=== PATIENT | male | born 1990 | race Two or more races ===

== ENCOUNTER 2021-11-04 14:23 | Emergency (ER) | payer OTHER ==
[2021-11-04] MEDS ORDERED: LORazepam 2 MG/ML INJ IV STA ×2 (14:30→16:06)
[2021-11-04] MEDS ORDERED: SODIUM CHLORIDE 0.9% 1,000 ML IV ONE ×2 (14:31→16:06)
[2021-11-04 14:33] VITALS: TEMP 98
--- NOTE | 2021-11-04 14:33 | ED ---
General Adult HPI - General Stated complaint: mahinure Time Seen by Provider: 11/04/21 14:23 Source: patient, RN notes reviewed, old records reviewed - History of Present Illness Initial comments: This is a 31-year-old male who presents emergency Department states he has a drinking problem. Patient states he was told to take Keppra to prevent him having withdrawal seizures and Librium but he never picked up a prescription for Librium. Rations states he did do a little drinking today but he felt the shakes, nausea went into his roommates room and he was shaking all over he states he went back out he remembers the whole event he never was unconscious but he thinks that might of been a seizure he is not sure. Patient states he takes his Keppra every day twice a day. Patient denies any recent fever chills or cough per patient denies abdominal pain patient denies nausea vomiting diarrhea. Patient denies headache patient denies any numbness weakness. Patient is anxious and admits to being anxious. - Related Data Home Medications Medication Instructions Recorded Confirmed levETIRAcetam [Keppra] 750 mg PO BID 11/04/21 11/04/21 Allergies Allergy/AdvReac Type Severity Reaction Status Date / Time No Known Allergies Allergy Verified 11/04/21 16:33 Review of Systems ROS Statement: Those systems with pertinent positive or pertinent negative responses have been documented in the HPI. ROS Other: All systems not noted in ROS Statement are negative. General Exam - General Exam Comments Initial Comments: GENERAL: Patient is well-developed and well-nourished. Patient is nontoxic and well- hydrated and is in no acute distress. ENT: Neck is soft and supple. No significant lymphadenopathy is noted. Oropharynx is clear. Moist mucous membranes. Neck has full range of motion without eliciting any pain. EYES: The sclera were anicteric and conjunctiva were pink and moist. Extraocular movements were intact and pupils were equal round and reactive to light. Eyelids were unremarkable. PULMONARY: Unlabored respirations. Good breath sounds bilaterally. No audible rales rhonchi or wheezing was noted. CARDIOVASCULAR: Patient is tachycardic at about 120 beats a minute. ABDOMEN: Soft and nontender with normal bowel sounds. SKIN: Skin is clear with no lesions or rashes and otherwise unremarkable. NEUROLOGIC: Patient is alert and oriented x3. Cranial nerves II through XII are grossly intact. Motor and sensory are also intact. Normal speech, volume and content. Symmetrical smile. MUSCULOSKELETAL: Normal extremities with adequate strength and full range of motion. No lower extremity swelling or edema. No calf tenderness. LYMPHATICS: No significant lymphadenopathy is noted PSYCHIATRIC: Patient is mildly anxious Course Vital Signs 11/04/21 14:27 Temperature 98 F Pulse Rate 89 Respiratory 16 Rate Blood Pressure 130/89 O2 Sat by Pulse 95 Oximetry Medical Decision Making - Medical Decision Making EKG shows sinus tachycardia 135 bpm CO interval is on a 45 QRS is 91 Q-T intervals 294 QTC is 373 per patient's EKG shows no ST segment elevation or depression. Patient spent almost the entire duration of the stay on his phone talking to his friends. Patient received 2 L of normal saline as well as 2 of Ativan. Patient had no seizure-like activity. 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 Patient drink a whole glass of water. - Lab Data Result diagrams: 11/04/21 14:42 11/04/21 14:42 Lab Results 11/04/21 11/04/21 11/04/21 Range/Units 14:42 14:42 16:00 WBC 10.2 (3.8-10.6) k/uL RBC 5.20 (4.30-5.90) m/uL Hgb 15.3 (13.0-17.5) gm/dL Hct 49.4 (39.0-53.0) % MCV 95.1 (80.0-100.0) fL MCH 29.5 (25.0-35.0) pg MCHC 31.0 (31.0-37.0) g/dL RDW 16.1 H (11.5-15.5) % Plt Count 316 (150-450) k/uL MPV 7.7 Neutrophils % 59 % Lymphocytes % 30 % Monocytes % 6 % Eosinophils % 1 % Basophils % 1 % Neutrophils # 5.9 (1.3-7.7) k/uL Lymphocytes # 3.1 (1.0-4.8) k/uL Monocytes # 0.7 (0-1.0) k/uL Eosinophils # 0.1 (0-0.7) k/uL Basophils # 0.1 (0-0.2) k/uL Anisocytosis Slight Sodium 133 L (137-145) mmol/L Potassium 4.0 (3.5-5.1) mmol/L Chloride 96 L (98-107) mmol/L Carbon Dioxide 9 L* (22-30) mmol/L Anion Gap 28 mmol/L BUN 7 L (9-20) mg/dL Creatinine 1.27 H (0.66-1.25) mg/dL Est GFR (CKD-EPI)AfAm 86 (>60 ml/min/1.73 sqM) Est GFR (CKD-EPI)NonAf 74 (>60 ml/min/1.73 sqM) Glucose 223 H (74-99) mg/dL Calcium 9.2 (8.4-10.2) mg/dL Magnesium 2.2 (1.6-2.3) mg/dL Total Bilirubin 1.0 (0.2-1.3) mg/dL AST 75 H (17-59) U/L ALT 28 (4-49) U/L Alkaline Phosphatase 56 (38-126) U/L Total Protein 8.1 (6.3-8.2) g/dL Albumin 4.9 (3.5-5.0) g/dL Urine Opiates Screen Not Detected (NotDetected) Ur Oxycodone Screen Not Detected (NotDetected) Urine Methadone Screen Not Detected (NotDetected) Ur Propoxyphene Screen Not Detected (NotDetected) Ur Barbiturates Screen Not Detected (NotDetected) U Tricyclic Antidepress Not Detected (NotDetected) Ur Phencyclidine Scrn Not Detected (NotDetected) Ur Amphetamines Screen Not Detected (NotDetected) U Methamphetamines Scrn Not Detected (NotDetected) U Benzodiazepines Scrn Not Detected (NotDetected) Urine Cocaine Screen Not Detected (NotDetected) U Marijuana (THC) Screen Not Detected (NotDetected) Serum Alcohol 58 mg/dL Disposition Clinical Impression: Alcohol withdrawal, Alcoholic ketoacidosis Disposition: HOME SELF-CARE Condition: Good Instructions (If sedation given, give patient instructions): Abuse of Alcohol (ED) Is patient prescribed a controlled substance at d/c from ED?: No Referrals: Nonstaff,Physician [Primary Care Provider] - 1-2 days Time of Disposition: 16:34
[2021-11-04 14:54] LABS: Anisocytosis Slight; Basophils # (A) 0.1 k/uL (0-0.2); Basophils % (A) 1 %; Eosinophils # (A) 0.1 k/uL (0-0.7); Eosinophils % (A) 1 %; HCT 49.4 % (39.0-53.0); HGB 15.3 gm/dL (13.0-17.5); Lymphocytes # (A) 3.1 k/uL (1.0-4.8); Lymphocytes % (A) 30 %; MCH 29.5 pg (25.0-35.0); MCV 95.1 fL (80.0-100.0); Mean Platelet Volume 7.7; Monocytes # (A) 0.7 k/uL (0-1.0); Monocytes % (A) 6 %; Neutrophils # (A) 5.9 k/uL (1.3-7.7); Neutrophils % (A) 59 %; Platelet Count 316 k/uL (150-450); RDW 16.1 % (11.5-15.5); WBC 10.2 k/uL (3.8-10.6)
[2021-11-04 15:16] LABS: Albumin 4.9 g/dL (3.5-5.0); Calcium 9.2 mg/dL (8.4-10.2); Magnesium 2.2 mg/dL (1.6-2.3); Total Protein 8.1 g/dL (6.3-8.2)
[2021-11-04 16:26] LABS: Amphetamine Screen,Urine Not Detected (NotDetected); Barbiturate Screen,Urine Not Detected (NotDetected); Benzodiazepines Screen,Urine Not Detected (NotDetected); Cocaine Screen,Urine Not Detected (NotDetected); Methadone Screen, Urine Not Detected (NotDetected); Opiate Screen,Urine Not Detected (NotDetected); Oxycodone Screen, Urine Not Detected (NotDetected); Phencyclidine Screen,Urine Not Detected (NotDetected); Tricyclic Antidepressant,Urine Not Detected (NotDetected); Urn Cannabinoid Scrn Not Detected (NotDetected)
[2021-11-04 17:52] VITALS: BP 140/90; PULSE 118; RESP 20
[2021-11-04] MEDS ORDERED: ONDANSETRON 4 MG ODT STARTER PACK 2 TAB BTL PO STA (17:55)
== END 2021-11-04 18:30 | disposition home or self-care (01) ==
LOC: EC 14:23
DX: F10.239 Alcohol dependence with withdrawal, unspecified (principal); E87.2 Acidosis; Y90.2 Blood alcohol level of 40-59 mg/100 ml
CPT/HCPCS: 36415; 93005; 80053; 80177; 83735; 85025; 80306; 80320; 99284; 96374; 96376; 96361; J2060; S0119

== ENCOUNTER 2022-06-07 20:12 | Emergency (ER) | payer OTHER ==
[2022-06-07 20:40] VITALS: BP 138/90; PULSE 93; RESP 16; TEMP 97.9
[2022-06-07] MEDS ORDERED: KETOROLAC 15 MG/ML 1 ML VIAL IM STA (21:34)
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
== END 2022-06-07 21:54 | disposition home or self-care (01) ==
LOC: EC 20:12
DX: S09.8XXA Other specified injuries of head, initial encounter (principal); S16.1XXA Strain of muscle, fascia and tendon at neck level, initial encounter; I10 Essential (primary) hypertension; F32.A Depression, unspecified; F41.9 Anxiety disorder, unspecified; F17.290 Nicotine dependence, other tobacco product, uncomplicated; Y93.55 Activity, bike riding; Y92.411 Interstate highway as the place of occurrence of the external cause; Z79.899 Other long term (current) drug therapy
CPT/HCPCS: 99283; 96372; J1885